=== PATIENT | female | born 1940 | race Hispanic/Latino ===

== ENCOUNTER → 2018-03-02 | Outpatient (CLI) | payer MEDICARE | END | disposition home or self-care (01) | LOC: SHCH 08:15 | PROVIDERS: ATTEND Internal Medicine Cardiovascular Disease | DX: I10 Essential (primary) hypertension (principal); I42.9 Cardiomyopathy, unspecified; I07.1 Rheumatic tricuspid insufficiency | CPT/HCPCS: 93306 ==

== ENCOUNTER 2018-09-23 17:51 | Emergency (ER) | payer MEDICARE | END 2018-09-23 18:05 | disposition left against medical advice (07) | LOC: EDH 17:51 | DX: Z53.21 Procedure and treatment not carried out due to patient leaving prior to being seen by health care provider (principal) ==

== ENCOUNTER → 2018-11-21 | Outpatient (CLI) | payer MEDICARE ==
[~2018-11-21] MED LIST: REGADENOSON 0.4 MG/5 ML PF SYG IVP SCH
== END | disposition home or self-care (01) ==
LOC: SHCH 09:14
PROVIDERS: ATTEND Internal Medicine Cardiovascular Disease
DX: I25.9 Chronic ischemic heart disease, unspecified (principal); I10 Essential (primary) hypertension
CPT/HCPCS: 78452; 93017; 96374; A9500 ×2; J2785

== ENCOUNTER 2021-04-17 20:30 | Emergency (ER) | payer MEDICARE ==
[~2021-04-17] VITALS: Ht 160 cm; Wt 99.8 kg
[~2021-04-17 20:30] MED LIST changes: +ANAS1TAB7 PO; +ATOR20TA65 PO; +CETI10TA57 PO; +CHOL200026 PO; +LOSA25TA41 PO; +POTA-79 PO; -REGADENOSON 0.4 MG/5 ML PF SYG IVP SCH; +RIVA20TA PO; +SERT-438 PO
[2021-04-17 20:35] VITALS: BP 103/43
[2021-04-17 20:38] VITALS: BP 103/42
[2021-04-17 21:05] LABS: BASOPHILS % (AUTO) 0.2 % (0.0-5.0); EOSINOPHILS % (AUTO) 1.1 % (0.0-8.0); HEMATOCRIT 29.7 % (36-48); LYMPHOCYTES % (AUTO) 11.3 % (21.0-51.0); MEAN CORPUSCULAR HEMOGLOBIN 27.3 pg (27.0-33.0); MEAN CORPUSCULAR HGB CONC 30.3 g/dL (32.0-36.0); MONOCYTES % (AUTO) 10.2 % (3.0-13.0); NEUTROPHILS % (AUTO) 76.5 % (40.0-77.0); PLATELET COUNT (AUTO) 265 K/uL (130-400); RED CELL DISTRIBUTION WIDTH 16.5 % (11.0-15.5)
[2021-04-17 21:17] LABS: POTASSIUM 4.5 mmol/L (3.5-5.1)
[2021-04-17 21:22] LABS: ALBUMIN 3.1 g/dL (3.5-5.0); BILIRUBIN,TOTAL 0.5 mg/dL (0.2-1.0); TOTAL PROTEIN, SERUM 6.9 g/dL (6.0-8.3)
[2021-04-17 21:39] VITALS: BP 121/40
[2021-04-17] MEDS ORDERED: KETOROLAC 15MG/ML VIAL (15MG/ML) IV SCH (21:45)
[2021-04-17 22:57] VITALS: BP 122/76
[2021-04-17 23:26] VITALS: BP 122/75
[2021-04-17] MEDS ORDERED: HYDROCODONE/ACETAMINOPHEN 5/325 MG TAB PO SCH (23:30)
[2021-04-17] MEDS ORDERED: ONDANSETRON HCL 4 MG/2 ML VIAL IVP SCH (23:30)
[2021-04-17] MEDS ORDERED: LIDOP TP (23:42)
[2021-04-17] MEDS ORDERED: ORPH-43 PO (23:42)
[2021-04-18] MEDS ORDERED: ONDANSETRON HCL 4 MG/2 ML VIAL ONE (00:08)
[2021-04-18] MEDS ORDERED: HYDROCODONE/ACETAMINOPHEN 10/325 MG TAB ONE (00:08)
== END 2021-04-18 00:23 | disposition home or self-care (01) ==
LOC: EDH 20:55
DX: S32.008A Other fracture of unspecified lumbar vertebra, initial encounter for closed fracture (principal); I10 Essential (primary) hypertension; E78.5 Hyperlipidemia, unspecified; E11.9 Type 2 diabetes mellitus without complications; I48.91 Unspecified atrial fibrillation; D64.9 Anemia, unspecified; Z79.899 Other long term (current) drug therapy; W18.39XA Other fall on same level, initial encounter; Y93.89 Activity, other specified; Y92.89 Other specified places as the place of occurrence of the external cause; Y99.8 Other external cause status
CPT/HCPCS: 36415; 70450; 71045; 72131; 80053; 82140; 83605; 83690; 84484; 85025; 87040 ×2; 93005; 96374; 99285; J1885; 96375; J2405

== ENCOUNTER 2023-06-15 15:08 | Emergency (ER) | payer OTHER, MEDICARE ==
[~2023-06-15] VITALS: Ht 152.4 cm; Wt 49.9 kg
[~2023-06-15 15:08] MED LIST changes: +LIDOP TP; +ORPH100T4 PO; +POTA-364 PO; -POTA-79 PO
[2023-06-15 16:19] LABS: BASOPHILS # (AUTO) 0.02 K/uL (0.00-0.20); BASOPHILS % (AUTO) 0.2 % (0.0-5.0); EOSINOPHILS # (AUTO) 0.06 K/uL (0.00-0.70); EOSINOPHILS % (AUTO) 0.7 % (0.0-8.0); HEMATOCRIT 31.8 % (36-48); IMMATURE GRANULOCYTE ABSOLUTE 0.04 K/uL (0-1); LYMPHOCYTES # (AUTO) 0.7 K/uL (1.0-4.8); LYMPHOCYTES % (AUTO) 7.9 % (21.0-51.0); MEAN CORPUSCULAR HGB CONC 29.6 g/dL (32.0-36.0); MEAN CORPUSCULAR VOLUME 81.3 fL (79-99); MONOCYTES % (AUTO) 10.6 % (3.0-13.0); NEUTROPHILS # (AUTO) 7.2 K/uL (1.8-7.7); NEUTROPHILS % (AUTO) 80.2 % (40.0-77.0); PLATELET COUNT (AUTO) 232 K/uL (130-400); RED BLOOD CELL COUNT(AUTO) 3.91 MIL/uL (4.00-5.50); RED CELL DISTRIBUTION WIDTH 19.8 % (11.0-15.5)
[2023-06-15 16:33] LABS: ALBUMIN 3.1 g/dL (3.5-5.0); BILIRUBIN,TOTAL 0.5 mg/dL (0.2-1.0); CREATININE 1.4 mg/dL (0.5-1.5); POTASSIUM 3.8 mmol/L (3.5-5.1); TOTAL PROTEIN, SERUM 7.2 g/dL (6.0-8.3)
[2023-06-15 17:20] VITALS: BP 115/37; PULSE 93; RESP 16; O2SAT 99
[2023-06-15 18:51] LABS: APPEARANCE,URINE CLOUDY (CLEAR); BILIRUBIN,URINE NEGATIVE (NEGATIVE); COLOR,URINE YELLOW (YELLOW); GLUCOSE, URINE (UA) NEGATIVE (NEGATIVE); KETONES,URINE NEGATIVE (NEGATIVE); LEUKOCYTE ESTERASE ,URINE 25 Leu/uL (NEGATIVE); NITRATE,URINE NEGATIVE (NEGATIVE); OCCULT BLOOD,URINE NEGATIVE (NEGATIVE); PH,URINE 5.5 (5.0-8.0); PROTEIN,URINE NEGATIVE (NEGATIVE); UROBILINOGEN,URINE 0.2 mg/dL (0.2-1.0)
[2023-06-15 18:56] LABS: ADD UA MICROSCOPIC YES
[2023-06-15 18:58] LABS: BACTERIA,URINE MANY /HPF (None Seen); MUCUS,URINE FEW LPF (None Seen); RBC,URINE 0-1 /HPF (0-1); SQUAMOUS EPITHELIAL CELL,UR FEW /HPF (0-2)
[2023-06-15] MEDS ORDERED: CEPH500B PO ×2 (19:33→19:37)
== END 2023-06-15 21:18 | disposition home or self-care (01) ==
LOC: EDH 15:08
DX: R53.1 Weakness (principal); N39.0 Urinary tract infection, site not specified; R77.8 Other specified abnormalities of plasma proteins; D64.9 Anemia, unspecified; E03.9 Hypothyroidism, unspecified; E78.00 Pure hypercholesterolemia, unspecified; F03.90 Unspecified dementia, unspecified severity, without behavioral disturbance, psychotic disturbance, mood disturbance, and anxiety; I48.91 Unspecified atrial fibrillation; Z79.01 Long term (current) use of anticoagulants; Z79.811 Long term (current) use of aromatase inhibitors; Z79.899 Other long term (current) drug therapy
CPT/HCPCS: 36415; 71045; 80053; 81001; 83880; 84484; 85025; 87077; 87088; 87186; 93005

== ENCOUNTER 2024-05-29 15:53 | Emergency (ER) | payer OTHER, MEDICARE ==
[~2024-05-29] VITALS: Ht 154.9 cm; Wt 72.6 kg
[~2024-05-29 15:53] MED LIST changes: -ANAS1TAB7 PO; +ASPI-1005 PO; +CALC-685 PO; -CETI10TA57 PO; -CHOL200026 PO; +FERR-63 PO; +HYDR-3421 PO; +LEVO25TA54 PO; -LIDOP TP; -LOSA25TA41 PO; +MEMA5TAB16 PO; +NITR100C4 PO; -ORPH100T4 PO; +PANT40TA54 PO; -POTA-364 PO; -RIVA20TA PO; -SERT-438 PO; +SERT-439 PO; +[UNRECOGNIZED DRUG - CODE] MC
[2024-05-29] MEDS: 0.9%NACL 1000ML 1,000 ML IV ONE (17:17)
[2024-05-29 17:25] LABS: BASOPHILS # (AUTO) 0.02 K/uL (0.00-0.20); BASOPHILS % (AUTO) 0.3 % (0.0-5.0); EOSINOPHILS # (AUTO) 0.12 K/uL (0.00-0.70); EOSINOPHILS % (AUTO) 1.8 % (0.0-8.0); HEMATOCRIT 28.8 % (36-48); IMMATURE GRANULOCYTE ABSOLUTE 0.03 K/uL (0-1); LYMPHOCYTES % (AUTO) 14.6 % (21.0-51.0); MEAN CORPUSCULAR HEMOGLOBIN 23.7 pg (27.0-33.0); MEAN CORPUSCULAR HGB CONC 30.2 g/dL (32.0-36.0); MEAN CORPUSCULAR VOLUME 78.5 fL (79-99); MONOCYTES # (AUTO) 0.5 K/uL (0.1-1.0); MONOCYTES % (AUTO) 7.1 % (3.0-13.0); NEUTROPHILS # (AUTO) 5.1 K/uL (1.8-7.7); NEUTROPHILS % (AUTO) 75.8 % (40.0-77.0); PLATELET COUNT (AUTO) 160 K/uL (130-400); RED BLOOD CELL COUNT(AUTO) 3.67 MIL/uL (4.00-5.50); RED CELL DISTRIBUTION WIDTH 21.2 % (11.0-15.5); WHITE BLOOD COUNT (AUTO) 6.8 K/uL (4.8-10.8)
[2024-05-29 17:45] LABS: CREATININE 0.9 mg/dL (0.5-1.0); POTASSIUM 3.9 mmol/L (3.5-5.1)
[2024-05-29 18:05] LABS: APPEARANCE,URINE CLEAR (CLEAR); BILIRUBIN,URINE NEGATIVE (NEGATIVE); COLOR,URINE LIGHT-YELLOW (YELLOW); GLUCOSE, URINE (UA) NEGATIVE (NEGATIVE); KETONES,URINE NEGATIVE (NEGATIVE); LEUKOCYTE ESTERASE ,URINE NEGATIVE Leu/uL (NEGATIVE); NITRATE,URINE NEGATIVE (NEGATIVE); OCCULT BLOOD,URINE NEGATIVE (NEGATIVE); PROTEIN,URINE 50 mg/dL (NEGATIVE); UROBILINOGEN,URINE 0.2 mg/dL (0.2-1.0)
[2024-05-29 18:07] LABS: ADD UA MICROSCOPIC YES
[2024-05-29 18:09] LABS: SQUAMOUS EPITHELIAL CELL,UR RARE /HPF (0-2)
[2024-05-29] MEDS: CEFTRIAXONE 1G VIAL IVPB ONE (18:32)
[2024-05-29 18:37] VITALS: BP 111/69; PULSE 79; RESP 14; O2SAT 97
[2024-06-04] MEDS ORDERED: DOCU100C33 PO (01:58)
[2024-06-04] MEDS ORDERED: AEC81 PO (01:58)
[2024-06-04] MEDS ORDERED: SERT-439 PO (01:58)
[2024-06-04] MEDS ORDERED: FERS325 PO (01:58)
[2024-06-04] MEDS ORDERED: NITR100C PO (01:58)
[2024-06-04] MEDS ORDERED: FURO40TA5 PO (01:58)
[2024-06-04] MEDS ORDERED: CALC-1009 PO (01:58)
[2024-06-04] MEDS ORDERED: LEVO25TA54 PO (01:58)
== END 2024-05-29 18:48 | disposition home or self-care (01) ==
LOC: EDH 15:53
DX: E86.0 Dehydration (principal); R53.1 Weakness; I11.0 Hypertensive heart disease with heart failure; I50.9 Heart failure, unspecified; I48.91 Unspecified atrial fibrillation; F41.9 Anxiety disorder, unspecified; E78.00 Pure hypercholesterolemia, unspecified; E03.9 Hypothyroidism, unspecified; N39.0 Urinary tract infection, site not specified; Z79.82 Long term (current) use of aspirin; Z79.890 Hormone replacement therapy; Z79.899 Other long term (current) drug therapy
CPT/HCPCS: 99284; 74176; 96374; 76770; 96361; 84484; 80048; 85025; 87040 ×2; 87086 ×2; 87186; 83605; 81001; 36415; J7030; J0696